=== PATIENT | female | born 1985 | race Caucasian/White ===

== ENCOUNTER 2017-04-07 16:07 | Emergency (ER) | payer MEDICAID ==
[~2017-04-07] VITALS: Wt 106.5 kg
[~2017-04-07 16:07] MED LIST: ALBU8.5H3 INH; FER325 PO; LORA10TA3 PO; MOME13HF2 IH; PRENAT PO
[2017-04-07] MEDS ORDERED: DIPHTH/TET/ACEL PERTUSS (ADULT) 0.5 ML VIAL IM* ONE (18:30)
[2017-04-07] MEDS ORDERED: BEN25 PO (19:16)
[2017-04-07] MEDS ORDERED: CEPH-443 PO (19:16)
[2017-04-07] MEDS ORDERED: TYL500 PO (19:16)
--- NOTE | 2017-04-08 18:11 | ERD ---
ER Documentation Chief Complaint Date/Time DATE: 04/08/17 TIME: 18:06 Chief Complaint R FOOT PAIN AFTER STEPPING ON A SCREW HPI This is a 32-year-old female presents to the ER after she stepped on a screw from the yo-yo 2 days ago. Patient was able to take the foreign body out, however the area continues to hurt. Patient does not have any fevers or chills. She did not have any other trauma to the area. She is currently 3 months denies any pelvic pain, vaginal discharge, vaginal bleeding. Patient states that her blood sugar was elevated at her last glucose tolerance test, however she has not been diagnosed with gestational diabetes. ROS 12 point review of systems was done, all negative except per HPI. Medications Home Meds Active Scripts Diphenhydramine Hcl* (Benadryl*) 25 Mg Cap, 25 MG PO Q6H Y for ITCHING for 3 Days, CAP Prov:KENISHA REED 04/07/17 Cephalexin* (Keflex*) 500 Mg Capsule, 500 MG PO BID for 7 Days, CAP Prov:KENISHA REED 04/07/17 Acetaminophen* (Tylenol*) 500 Mg Tab, 500 MG PO Q4H Y for MILD PAIN LEVEL 1-3 for 7 Days, TAB Prov:KENISHA REED 04/07/17 Reported Medications Ferrous Sulfate* (Ferrous Sulfate*) 325 Mg Tabec, 325 MG PO DAILY, TAB 08/19/14 Loratadine* (Loratadine*) 10 Mg Tablet, 10 MG PO DAILY, TAB 04/02/14 Mometasone-Formoterol (Dulera) 100-5 Mcg - 13 Gm Hfa.aer.ad, 2 PUFFS IH BID, EA 04/02/14 Albuterol Sulfate* (Proair HFA*) 8.5 Gm Hfa.aer.ad, 2 PUFF INH Q4H Y for WHEEZING AND SOB, INH 04/02/14 Multivit/Min/Fol Ac/Iron/Pren* ( S*) 1 Tab Tab, 1 TAB PO DAILY, TAB 04/02/14 Allergies Allergies: Coded Allergies: No Known Drug Allergy (Verified Allergy, Mild, 05/10/14) PMhx/Soc History of Surgery: Yes (C SECTION X 1) Anesthesia Reaction: No Hx Neurological Disorder: No Hx Respiratory Disorders: Yes (ASTHMA) Hx Cardiac Disorders: Yes (HYPERLIPIDEMIA) Hx Psychiatric Problems: No Hx Miscellaneous Medical Probl: Yes (HERNIA,GASTRITIS) Hx Alcohol Use: No Hx Substance Use: No Hx Tobacco Use: No Physical Exam Vitals Vital Signs Date Time Temp Pulse Resp B/P Pulse Ox O2 Delivery O2 Flow Rate FiO2 04/07/17 16:12 98.0 78 18 139/66 99 Physical Exam GENERAL: The patient is well developed and appropriate for usual state of health , in no apparent distress. HEENT: Atraumatic CHEST: Clear to auscultation bilaterally. There are no rales, wheezes or rhonchi. HEART: Regular rate and rhythm. No murmurs, clicks, rubs or gallops. EXTREMITIES: Equal pulses bilaterally. There is no peripheral clubbing, cyanosis or edema. No focal swelling or erythema. Full range of motion. Grossly neurovascularly intact. There is a small puncture wound to the right plantar heel, slight area of surrounding erythema, no discharge or warmth to the touch. NEURO: Alert and oriented. SKIN: There is no apparent rash or petechia. The skin is warm and dry. Results 24 hrs Current Medications Medications (Trade) Dose Ordered Sig/Abdullahi Route PRN Reason Start Time Stop Time Status Last Admin Dose Admin Diphtheria/ Tetanus/Acell Pertussis (Adacel) 0.5 ml ONCE ONCE IM* 04/07/17 18:30 04/07/17 18:31 DC 04/07/17 18:27 Procedures/MDM This is a 32-year-old female presents to the ER with pain to her heel after she stepped on screw. Patient was given a Tdap shot, with no complications. I explained the risks versus benefits of obtaining x-ray as patient is currently 3 months , and patient decided not to have x-ray done. It was slightly erythematous, because patient stated that she had elevated blood sugar and diagnosis of gestational diabetes is unclear at this time patient will be sent home with Keflex for possible minor cellulitis secondary to puncture wound. It was also given Benadryl, she says she has been experiencing itchy rashes lately , however there is no rash on physical examination at this time. Patient is afebrile and extremely well-appearing at this time. She does not have any gynecological complaints. She is to follow-up with her primary care doctor within 1-2 days or return to ER sooner if symptoms. My medical decision making was shared with the patient she understands and agrees with plan. Departure Diagnosis: Primary Impression: Foot pain Condition: Stable Patient Instructions: Puncture Wound, Foot Additional Instructions: Llame al doctor MADARVIN y [place] eliseo ROSY PARA DENTRO DE 1-2 HUGHES.Dgale a la secretaria que nosotros le instruimos hacer esta rosy.Avise o llame si degroot condicin se empeora antes de la rosy. Regresa aqui si peor o no mejor. KENISHA REED Apr 08, 2017 18:11
== END 2017-04-07 19:24 | disposition home or self-care (01) ==
LOC: FTE 16:07
DX: O9A.211 Injury, poisoning and certain other consequences of external causes complicating pregnancy, first trimester (principal); J45.909 Unspecified asthma, uncomplicated; O99.511 Diseases of the respiratory system complicating pregnancy, first trimester; S91.331A Puncture wound without foreign body, right foot, initial encounter; W45.8XXA Other foreign body or object entering through skin, initial encounter; Y92.9 Unspecified place or not applicable; Z23 Encounter for immunization; Z3A.00 Weeks of gestation of pregnancy not specified
CPT/HCPCS: 90471; 90715; Z7502